=== PATIENT | male | born 1940 | race Caucasian/White ===

== ENCOUNTER 2016-06-27 03:55 | Inpatient (IN) | payer OTHER ==
[~2016-06-27] VITALS: Ht 182.9 cm; Wt 103.4 kg
[~2016-06-27 03:55] MED LIST: AMLODIPINE BESY10 MG PO; ASPIR-LOW81 MG PO; ATORVASTATIN CA40 MG PO; GLUCOPHAGE1000 MG PO; HUMULIN N100 UNIT/2 SC; HYDROCHLOROTHIA25 MG PO; METFORMIN HCL500 MG PO; OMEPRAZOLE40 M1 PO; RANEXA500 MG PO; RANITIDINE HCL300 MG PO; TRANDOLAPRIL2 MG PO
[2016-06-27 04:50] LABS: BASOPHIL COUNT 0.1 K/uL (0-0.1); EOSINOPHIL (%) 1.6 % (0-5); EOSINOPHIL COUNT 0.1 K/uL (0-0.3); HEMATOCRIT 33.8 % (38.0-50.0); IMMATURE GRANULOCYTE (%) 0.3 % (0.0-0.7); INSTRUMENT ABS NEUTROPHIL CT 4.9 K/uL; LYMPHOCYTE COUNT 1.1 K/uL (1.0-2.8); MCH 29.5 PG (29.0-34.0); MCHC 33.7 G/DL (30.0-36.0); MCV 87.3 FL (86-99); MEAN PLAT.VOLUME 10.5 uM^3 (9.0-12.4); MONOCYTE (%) 9.6 % (3-12); MONOCYTE COUNT 0.7 K/uL (0-0.8); NEUTROPHIL (%) 71.5 % (45-76); NEUTROPHIL COUNT 4.9 K/uL (1.8-6.4); PLATELET COUNT 229 K/uL (156-360); RBC DIS.WIDTH-CV 13.3 % (11.8-14.6); RBC DIS.WIDTH-SD 42.2 % (39-53); RED BLOOD COUNT 3.87 M/uL (4.00-5.50); WHITE BLOOD COUNT 6.9 K/uL (4.1-10.2)
[2016-06-27 05:00] LABS: CHLORIDE 109 mEq/L (99-109); POTASSIUM 4.1 mEq/L (3.7-5.4); SODIUM 139 mEq/L (136-147)
[2016-06-27 05:02] LABS: D-DIMER ELISA 1.62 mg/L FEU (< 0.57); GLUCOSE 160 mg/dL (70-99)
[2016-06-27 05:04] LABS: ANION GAP 10 MEQ/L (2-14); TOTAL BILIRUBIN 0.4 mg/dL (0.0-1.0)
[2016-06-27 05:06] LABS: ALKALINE PHOSPHATASE 67 IU/L (3-129); GFR ESTIMATE (CALCULATED) 42 mL/min/
[2016-06-27 05:07] LABS: UREA NITROGEN (BUN) 42 mg/dL (9-23)
[2016-06-27 05:24] LABS: TROP-I INTERPRETATION POSITIVE; TROPONIN-I 1.03 ng/mL (0.0-0.30)
[2016-06-27 05:55] LABS: INTER. NORMALIZED RATIO 1.1; PROTHROMBIN TIME 10.7 (9.2-11.2)
[2016-06-27 06:13] LABS: PTT 28.6 (25-32)
[2016-06-27 07:56] LABS: POINT-OF-CARE METER ID UU14100415
[2016-06-27 12:32] VITALS: BP 138/71
[2016-06-27 12:35] LABS: INTER. NORMALIZED RATIO 1.1; PROTHROMBIN TIME 11.4 (9.2-11.2)
[2016-06-27 12:37] LABS: Estimated Average Glucose 217 mg/dL (70-123); HEMOGLOBIN A1c (GLYCOHEMOGLOB) 9.2 % HGB (Below 5.7)
[2016-06-27 12:45] LABS: POINT-OF-CARE METER ID UU13113781
[2016-06-27 13:19] LABS: TROP-I INTERPRETATION POSITIVE; TROPONIN-I 4.64 ng/mL (0.0-0.30)
[2016-06-27 14:23] LABS: HDL CHOLESTEROL 63 MG/DL (Desirable>=40); LDL CHOLESTEROL 138 mg/dL (Desirable<100); NON-HDL CHOLESTEROL 154 mg/dL (Desirable<160); TOTAL CHOLESTEROL 217 mg/dL (Desirable<200); TRIGLYCERIDES 80 MG/DL (Normal: <150)
[2016-06-27 16:48] LABS: POINT-OF-CARE METER ID UU13113781
[2016-06-27 17:11] VITALS: BP 101/59
[2016-06-27 18:30] LABS: TROP-I INTERPRETATION POSITIVE; TROPONIN-I 8.01 ng/mL (0.0-0.30)
[2016-06-27 20:34] VITALS: BP 107/62
[2016-06-27 23:19] VITALS: BP 105/64
[2016-06-28 00:59] LABS: TROP-I INTERPRETATION POSITIVE; TROPONIN-I 6.74 ng/mL (0.0-0.30)
[2016-06-28 04:21] VITALS: BP 104/65
[2016-06-28 08:04] LABS: TROP-I INTERPRETATION POSITIVE; TROPONIN-I 4.76 ng/mL (0.0-0.30)
[2016-06-28 08:14] LABS: POINT-OF-CARE METER ID UU13113781
[2016-06-28 09:12] LABS: BASOPHIL COUNT 0.1 K/uL (0-0.1); EOSINOPHIL (%) 4.4 % (0-5); EOSINOPHIL COUNT 0.3 K/uL (0-0.3); HEMATOCRIT 34.5 % (38.0-50.0); IMMATURE GRANULOCYTE (%) 0.3 % (0.0-0.7); INSTRUMENT ABS NEUTROPHIL CT 3.8 K/uL; LYMPHOCYTE COUNT 1.8 K/uL (1.0-2.8); MCH 29.6 PG (29.0-34.0); MCV 89.6 FL (86-99); MEAN PLAT.VOLUME 11.3 uM^3 (9.0-12.4); MONOCYTE (%) 9.9 % (3-12); MONOCYTE COUNT 0.7 K/uL (0-0.8); NEUTROPHIL (%) 57.2 % (45-76); NEUTROPHIL COUNT 3.8 K/uL (1.8-6.4); NRBC (%) 0.5 /100 WBC (0-0); PLATELET COUNT 240 K/uL (156-360); RBC DIS.WIDTH-CV 13.7 % (11.8-14.6); RBC DIS.WIDTH-SD 44.9 % (39-53); RED BLOOD COUNT 3.85 M/uL (4.00-5.50); WHITE BLOOD COUNT 6.7 K/uL (4.1-10.2)
[2016-06-28 09:35] LABS: CHLORIDE 111 mEq/L (99-109); POTASSIUM 4.5 mEq/L (3.7-5.4); SODIUM 142 mEq/L (136-147)
[2016-06-28 09:37] LABS: GLUCOSE 126 mg/dL (70-99)
[2016-06-28 09:38] LABS: ANION GAP 10 MEQ/L (2-14)
[2016-06-28 09:41] LABS: GFR ESTIMATE (CALCULATED) 48 mL/min/; UREA NITROGEN (BUN) 36 mg/dL (9-23)
[2016-06-28 09:52] VITALS: BP 123/92
[2016-06-28 11:06] LABS: POINT-OF-CARE METER ID UU13113781
[2016-06-28 11:54] VITALS: BP 113/77
[2016-06-28 15:59] LABS: POINT-OF-CARE METER ID UU14174216
[2016-06-28 16:49] VITALS: BP 116/57
[2016-06-28 19:45] VITALS: BP 107/62
[2016-06-28 20:51] LABS: POINT-OF-CARE METER ID UU14174216
[2016-06-28 23:00] VITALS: BP 106/60
[2016-06-29 03:15] VITALS: BP 111/64
[2016-06-29 04:10] LABS: BASOPHIL COUNT 0.1 K/uL (0-0.1); EOSINOPHIL COUNT 0.3 K/uL (0-0.3); HEMATOCRIT 31.5 % (38.0-50.0); IMMATURE GRANULOCYTE (%) 0.4 % (0.0-0.7); INSTRUMENT ABS NEUTROPHIL CT 4.1 K/uL; LYMPHOCYTE COUNT 2.1 K/uL (1.0-2.8); MCH 29.7 PG (29.0-34.0); MCHC 33.3 G/DL (30.0-36.0); MEAN PLAT.VOLUME 10.8 uM^3 (9.0-12.4); MONOCYTE (%) 10.3 % (3-12); MONOCYTE COUNT 0.8 K/uL (0-0.8); NEUTROPHIL (%) 56.4 % (45-76); NEUTROPHIL COUNT 4.1 K/uL (1.8-6.4); PLATELET COUNT 207 K/uL (156-360); RBC DIS.WIDTH-CV 13.6 % (11.8-14.6); RBC DIS.WIDTH-SD 44.4 % (39-53); RED BLOOD COUNT 3.54 M/uL (4.00-5.50); WHITE BLOOD COUNT 7.3 K/uL (4.1-10.2)
[2016-06-29 04:57] LABS: CHLORIDE 110 mEq/L (99-109)
[2016-06-29 04:58] LABS: SODIUM 140 mEq/L (136-147)
[2016-06-29 04:59] LABS: GLUCOSE 131 mg/dL (70-99)
[2016-06-29 05:01] LABS: ANION GAP 8 MEQ/L (2-14)
[2016-06-29 05:03] LABS: GFR ESTIMATE (CALCULATED) 45 mL/min/
[2016-06-29 05:04] LABS: UREA NITROGEN (BUN) 38 mg/dL (9-23)
[2016-06-29 07:00] VITALS: BP 109/65
[2016-06-29 08:08] LABS: POINT-OF-CARE METER ID UU13113781; POINT-OF-CARE USER ID ENVKC36
[2016-06-29 11:29] VITALS: BP 110/59
[2016-06-29 15:18] VITALS: BP 120/66
[2016-06-29 16:49] LABS: POINT-OF-CARE USER ID ENVKC36
== END 2016-06-29 16:44 | disposition short-term general hospital (02) | DRG 280 ==
LOC: EME → EDBD 03:55 → EME 03:55 → EDOF 05:58 → 4EAST 12:19
PROVIDERS: Emergency Medicine; Hospitalist; Internal Medicine; Internal Medicine Cardiovascular Disease; Physician Assistant Medical
DX: I21.4 Non-ST elevation (NSTEMI) myocardial infarction (principal); I50.31 Acute diastolic (congestive) heart failure; E11.40 Type 2 diabetes mellitus with diabetic neuropathy, unspecified; E11.21 Type 2 diabetes mellitus with diabetic nephropathy; E11.22 Type 2 diabetes mellitus with diabetic chronic kidney disease; E11.65 Type 2 diabetes mellitus with hyperglycemia; I25.10 Atherosclerotic heart disease of native coronary artery without angina pectoris; Z95.5 Presence of coronary angioplasty implant and graft; N18.3 Chronic kidney disease, stage 3 (moderate); E78.5 Hyperlipidemia, unspecified; I35.0 Nonrheumatic aortic (valve) stenosis; Z96.652 Presence of left artificial knee joint; E66.9 Obesity, unspecified; Z68.31 Body mass index [BMI] 31.0-31.9, adult; Z87.891 Personal history of nicotine dependence; H35.30 Unspecified macular degeneration; K21.9 Gastro-esophageal reflux disease without esophagitis; Z89.412 Acquired absence of left great toe; Z79.4 Long term (current) use of insulin
CPT/HCPCS: 71020; 80048; 80053; 80061; 82948; 83036; 83880; 84484; 85025; 85027; 85379; 85610; 85730; 93005; 99281; 99284; G0378; J1815; J1940

== ENCOUNTER 2017-01-20 11:34 | Inpatient (IN) | payer OTHER ==
[~2017-01-20] VITALS: Ht 182.9 cm; Wt 111.7 kg
[~2017-01-20 11:34] MED LIST changes: -ATORVASTATIN CA40 MG PO; +ATORVASTATIN CA80 MG PO; -HUMULIN N100 UNIT/2 SC; +LEVEMIR FL100 UNIT/1 SC
[2017-01-20 12:09] LABS: EOSINOPHIL (%) 0.1 % (0-5); HEMATOCRIT 38.6 % (38.0-50.0); IMMATURE GRANULOCYTE (%) 0.3 % (0.0-0.7); INSTRUMENT ABS NEUTROPHIL CT 7.9 K/uL; LYMPHOCYTE COUNT 0.7 K/uL (1.0-2.8); MCH 30.6 PG (29.0-34.0); MCHC 33.4 G/DL (30.0-36.0); MCV 91.5 FL (86-99); MONOCYTE (%) 6.9 % (3-12); MONOCYTE COUNT 0.7 K/uL (0-0.8); NEUTROPHIL (%) 84.5 % (45-76); NEUTROPHIL COUNT 7.9 K/uL (1.8-6.4); PLATELET COUNT 175 K/uL (156-360); RBC DIS.WIDTH-CV 14.1 % (11.8-14.6); RBC DIS.WIDTH-SD 47.3 % (39-53); RED BLOOD COUNT 4.22 M/uL (4.00-5.50); WHITE BLOOD COUNT 9.4 K/uL (4.1-10.2)
[2017-01-20 12:19] LABS: CHLORIDE 104 mEq/L (99-109); POTASSIUM 4.1 mEq/L (3.7-5.4); SODIUM 138 mEq/L (136-147)
[2017-01-20 12:22] LABS: GLUCOSE 341 mg/dL (70-99)
[2017-01-20 12:23] LABS: ANION GAP 11 MEQ/L (2-14)
[2017-01-20 12:24] LABS: TOTAL BILIRUBIN 1.2 mg/dL (0.0-1.0)
[2017-01-20 12:25] LABS: ALKALINE PHOSPHATASE 95 IU/L (3-129); GFR ESTIMATE (CALCULATED) 45 mL/min/
[2017-01-20 12:26] LABS: UREA NITROGEN (BUN) 30 mg/dL (9-23)
[2017-01-20 14:03] LABS: ADD MIUA? YES; BILIRUBIN NEGATIVE; BLOOD SMALL; COLOR YELLOW ((YELLOW)); GLUCOSE (STRIP) >=500; KETONES NEGATIVE; LEUKOCYTES NEGATIVE; NITRITE NEGATIVE; PROTEIN (STRIP) 100; UROBILINOGEN 0.2 MG/DL (0.2-1.0)
[2017-01-20 14:11] LABS: BACTERIA RARE /HPF; EPITHELIAL CELLS RARE /HPF; MUCUS TRACE /LPF; RED BLOOD CELLS 0-5 /HPF (0-5); UCUL ADDED? NO; WHITE BLOOD CELLS 0-5 /HPF (0-5)
[2017-01-20] MEDS ORDERED: METOPROLOL SUCC25 MG PO (14:42)
[2017-01-20] MEDS ORDERED: ELIQUIS5 MG PO (14:42)
[2017-01-20] MEDS ORDERED: FUROSEMIDE40 MG PO ×2 (14:43→14:44)
[2017-01-20] MEDS ORDERED: CLOPIDOGREL75 MG PO (14:44)
[2017-01-20] MEDS ORDERED: IRON325 M1 PO (14:45)
[2017-01-20] MEDS ORDERED: NITROGLYCERIN0.4 MG SL (14:45)
[2017-01-20] MEDS ORDERED: NOVOLOG PE100 UNITS/ SC (14:45)
[2017-01-20 15:48] LABS: POINT-OF-CARE METER ID UU14100415
[2017-01-20 16:53] LABS: HDL CHOLESTEROL 53 MG/DL (Desirable>=40); LDL CHOLESTEROL 105 mg/dL (Desirable<100); NON-HDL CHOLESTEROL 136 mg/dL (Desirable<160); TOTAL CHOLESTEROL 189 mg/dL (Desirable<200); TRIGLYCERIDES 156 MG/DL (Normal: <150)
[2017-01-20 17:01] LABS: Estimated Average Glucose 186 mg/dL (70-123); HEMOGLOBIN A1c (GLYCOHEMOGLOB) 8.1 % HGB (Below 5.7)
[2017-01-20 17:27] VITALS: BP 168/93
[2017-01-20 18:06] LABS: POINT-OF-CARE METER ID UU14162513
[2017-01-20 19:00] VITALS: BP 160/78
[2017-01-20 23:09] VITALS: BP 103/56
[2017-01-21 04:23] VITALS: BP 121/52
[2017-01-21 06:14] LABS: MCH 30.6 PG (29.0-34.0); MCHC 33.5 G/DL (30.0-36.0); MCV 91.4 FL (86-99); MEAN PLAT.VOLUME 10.8 uM^3 (9.0-12.4); PLATELET COUNT 143 K/uL (156-360); RBC DIS.WIDTH-CV 14.1 % (11.8-14.6); RBC DIS.WIDTH-SD 47.9 % (39-53); RED BLOOD COUNT 3.72 M/uL (4.00-5.50); WHITE BLOOD COUNT 5.3 K/uL (4.1-10.2)
[2017-01-21 07:45] VITALS: BP 128/61
[2017-01-21 07:48] LABS: ANION GAP 9 MEQ/L (2-14); CHLORIDE 105 MEQ/L (99-109); POTASSIUM 3.4 MEQ/L (3.7-5.4); SAMPLE HEMOLYSIS CHECK 0; SAMPLE ICTERIC CHECK 0; SAMPLE LIPEMIA CHECK 0; SODIUM 139 MEQ/L (136-147)
[2017-01-21 07:54] LABS: GFR ESTIMATE (CALCULATED) 57 mL/min/; GLUCOSE 188 mg/dL (70-99); UREA NITROGEN (BUN) 26 mg/dL (9-23)
[2017-01-21 08:03] LABS: POINT-OF-CARE METER ID UU14162513
[2017-01-21 08:16] LABS: POINT-OF-CARE METER ID UU13113700
[2017-01-21 09:52] LABS: METH RESISTANT S AUREUS PCR NEGATIVE (NEGATIVE)
[2017-01-21 09:58] LABS: PROBE CHECK PASS; SPECIMEN PROCESSING CONTROL PASS
[2017-01-21 11:34] VITALS: BP 119/60
[2017-01-21 13:44] LABS: POINT-OF-CARE METER ID UU14162513
[2017-01-21 16:38] VITALS: BP 156/85
[2017-01-21 17:30] LABS: POINT-OF-CARE METER ID UU13113831
[2017-01-21 20:00] VITALS: BP 126/64
[2017-01-21 22:54] LABS: POINT-OF-CARE METER ID UU13113831
[2017-01-22 02:18] VITALS: BP 192/103
[2017-01-22 07:46] VITALS: BP 124/78
[2017-01-22 07:53] LABS: POINT-OF-CARE METER ID UU14174225
[2017-01-22 11:10] VITALS: BP 116/72
[2017-01-22 12:15] LABS: POINT-OF-CARE METER ID UU14174225
[2017-01-22 15:38] VITALS: BP 134/64
[2017-01-22 17:16] LABS: POINT-OF-CARE METER ID UU13113717
[2017-01-22 20:00] VITALS: BP 147/85
[2017-01-22 20:43] LABS: POINT-OF-CARE METER ID UU13113717
[2017-01-23 00:11] VITALS: BP 132/66
[2017-01-23 04:30] VITALS: BP 134/91
[2017-01-23 07:31] VITALS: BP 201/101
[2017-01-23 07:40] VITALS: BP 178/92
[2017-01-23 08:01] LABS: POINT-OF-CARE METER ID UU13113717
[2017-01-23 10:16] LABS: POINT-OF-CARE METER ID UU14174225
[2017-01-23 11:53] LABS: POINT-OF-CARE METER ID UU13113717
[2017-01-23 11:54] VITALS: BP 145/71
[2017-01-23] MEDS ORDERED: K-DUR20 MEQ PO (13:49)
[2017-01-23] MEDS ORDERED: PEPCID40 MG PO (13:50)
[2017-01-23] MEDS ORDERED: ZUPLENZ4 MG PO (13:51)
[2017-01-23] MEDS ORDERED: PAIN & FEVER325 MG PO (13:52)
== END 2017-01-23 13:26 | DRG 66 ==
LOC: EME 11:34 → EDOF 15:13 → 5WEST 15:13 → EDOF 15:13 → ENRESERV 15:18 → 5WEST 17:00 → 5SOUTH 01-21 16:08 → 5WEST 01-21 16:08 → ENRESERV 01-21 23:48 → 5SOUTH 01-22 02:06
PROVIDERS: Emergency Medicine; Hospitalist
DX: I63.9 Cerebral infarction, unspecified (principal); I11.0 Hypertensive heart disease with heart failure; I50.9 Heart failure, unspecified; E11.42 Type 2 diabetes mellitus with diabetic polyneuropathy; I25.10 Atherosclerotic heart disease of native coronary artery without angina pectoris; I48.91 Unspecified atrial fibrillation; M75.101 Unspecified rotator cuff tear or rupture of right shoulder, not specified as traumatic; K21.9 Gastro-esophageal reflux disease without esophagitis; R29.6 Repeated falls; Z86.73 Personal history of transient ischemic attack (TIA), and cerebral infarction without residual deficits; Z95.2 Presence of prosthetic heart valve; I25.2 Old myocardial infarction; E66.9 Obesity, unspecified; Z68.33 Body mass index [BMI] 33.0-33.9, adult; Z96.652 Presence of left artificial knee joint; Z79.01 Long term (current) use of anticoagulants; Z79.4 Long term (current) use of insulin
CPT/HCPCS: 70450; 70551; 71010; 80048; 80053; 80061; 80306 90; 81003; 82948; 83036; 85025; 85027; 87641; 92523 GN; 92610 GN; 93005; 93880; 99281; 99285; G0378; G8978 GP CM; G8979 CJ; G8987 GO CM; G8988 GO CK; G9168 GN CJ; G9169 GN CJ; G9170 GN CJ; J1815; J7030

== ENCOUNTER 2017-01-23 10:07 | Inpatient (IN) | payer OTHER ==
[~2017-01-23] VITALS: Ht 182.9 cm; Wt 112.4 kg
[~2017-01-23 10:07] MED LIST changes: +CLOPIDOGREL75 MG PO; +ELIQUIS5 MG PO; +FUROSEMIDE40 MG PO; +IRON325 M1 PO; +METOPROLOL SUCC25 MG PO; +NITROGLYCERIN0.4 MG SL; +NOVOLOG PE100 UNITS/ SC
[2017-01-23] MEDS ORDERED: K-DUR20 MEQ PO (13:49)
[2017-01-23] MEDS ORDERED: PEPCID40 MG PO (13:50)
[2017-01-23 13:51] VITALS: BP 135/88
[2017-01-23] MEDS ORDERED: ZUPLENZ4 MG PO (13:51)
[2017-01-23] MEDS ORDERED: PAIN & FEVER325 MG PO (13:52)
[2017-01-23 15:30] VITALS: BP 164/84
[2017-01-23 16:22] LABS: POINT-OF-CARE METER ID UU14174215; POINT-OF-CARE USER ID 609231305
[2017-01-23 20:48] LABS: POINT-OF-CARE METER ID UU14174215
[2017-01-23 23:25] VITALS: BP 158/78
[2017-01-24 05:12] VITALS: BP 140/97
[2017-01-24 07:24] LABS: MCHC 33.1 G/DL (30.0-36.0); MCV 90.7 FL (86-99); MEAN PLAT.VOLUME 10.6 uM^3 (9.0-12.4); RBC DIS.WIDTH-CV 13.7 % (11.8-14.6); RBC DIS.WIDTH-SD 45.4 % (39-53); WHITE BLOOD COUNT 5.7 K/uL (4.1-10.2)
[2017-01-24 07:29] LABS: PLATELET COUNT 191 K/uL (156-360)
[2017-01-24 07:41] LABS: POINT-OF-CARE METER ID UU14174215
[2017-01-24 08:00] LABS: ALKALINE PHOSPHATASE 82 IU/L (3-129); ANION GAP 11 MEQ/L (2-14); CHLORIDE 107 MEQ/L (99-109); GFR ESTIMATE (CALCULATED) > 59 mL/min/ (58.99-99999); POTASSIUM 3.9 MEQ/L (3.7-5.4); SAMPLE HEMOLYSIS CHECK 0; SAMPLE ICTERIC CHECK 0; SAMPLE LIPEMIA CHECK 0; SODIUM 144 MEQ/L (136-147); TOTAL BILIRUBIN 0.8 MG/DL (0.0-1.0); UREA NITROGEN (BUN) 32 mg/dL (9-23)
[2017-01-24 08:01] LABS: GLUCOSE 70 mg/dL (70-99)
[2017-01-24 11:55] LABS: POINT-OF-CARE METER ID UU13113720; POINT-OF-CARE USER ID AHSSSJB31
[2017-01-24 16:10] VITALS: BP 114/59
[2017-01-24 17:13] LABS: POINT-OF-CARE METER ID UU14174215
[2017-01-24 21:35] LABS: POINT-OF-CARE METER ID UU13113720
[2017-01-25 06:22] VITALS: BP 132/82
[2017-01-25 08:09] LABS: POINT-OF-CARE METER ID UU13113720; POINT-OF-CARE USER ID AHSSSJB31
[2017-01-25 11:45] LABS: POINT-OF-CARE METER ID UU13113720; POINT-OF-CARE USER ID AHSSSJB31
[2017-01-25 16:03] VITALS: BP 146/87
[2017-01-25 16:35] LABS: POINT-OF-CARE METER ID UU13113720
[2017-01-25 21:04] LABS: POINT-OF-CARE METER ID UU14174215
[2017-01-26 05:07] VITALS: BP 136/79
[2017-01-26 06:43] LABS: POINT-OF-CARE METER ID UU14174215; POINT-OF-CARE USER ID ENVGAF
[2017-01-26 07:19] LABS: POINT-OF-CARE METER ID UU14174215; POINT-OF-CARE USER ID ENVGAF
[2017-01-26 11:44] LABS: POINT-OF-CARE METER ID UU14174215; POINT-OF-CARE USER ID ENVGAF
[2017-01-26 15:24] VITALS: BP 135/67
[2017-01-26 16:58] LABS: POINT-OF-CARE METER ID UU13113720
[2017-01-26 21:51] LABS: POINT-OF-CARE METER ID UU13113720
[2017-01-27 06:04] VITALS: BP 127/84
[2017-01-27 07:02] LABS: POINT-OF-CARE METER ID UU14174215; POINT-OF-CARE USER ID ENVGAF
[2017-01-27 11:38] LABS: POINT-OF-CARE METER ID UU14174215; POINT-OF-CARE USER ID ENVGAF
[2017-01-27 16:31] VITALS: BP 151/86
[2017-01-27 16:31] LABS: POINT-OF-CARE METER ID UU13113720
[2017-01-27 21:12] LABS: POINT-OF-CARE METER ID UU13113720
[2017-01-28 04:36] VITALS: BP 135/62
[2017-01-28 07:55] LABS: POINT-OF-CARE METER ID UU13113720
[2017-01-28 11:19] LABS: POINT-OF-CARE METER ID UU14174215
[2017-01-28 16:00] VITALS: BP 121/73
[2017-01-28 16:22] LABS: POINT-OF-CARE METER ID UU14174215
[2017-01-28 20:49] LABS: POINT-OF-CARE METER ID UU14174215
[2017-01-29 05:18] VITALS: BP 135/82
[2017-01-29 07:20] LABS: POINT-OF-CARE METER ID UU13113720
[2017-01-29 11:25] LABS: POINT-OF-CARE METER ID UU13113720
[2017-01-29 15:54] VITALS: BP 136/63
[2017-01-29 16:34] LABS: POINT-OF-CARE METER ID UU14174215
[2017-01-29 20:54] VITALS: BP 121/71
[2017-01-29 21:00] LABS: POINT-OF-CARE METER ID UU13113720
[2017-01-30 05:10] VITALS: BP 103/55
[2017-01-30 15:04] VITALS: BP 126/80
[2017-01-30 16:23] LABS: POINT-OF-CARE METER ID UU13113720
[2017-01-30 21:15] VITALS: BP 127/71
[2017-01-30 21:25] LABS: POINT-OF-CARE METER ID UU13113720
[2017-01-31 06:05] VITALS: BP 131/74
[2017-01-31 11:24] LABS: POINT-OF-CARE METER ID UU14174215
[2017-01-31 15:11] VITALS: BP 116/65
[2017-01-31 16:44] LABS: POINT-OF-CARE METER ID UU14174215
[2017-01-31 21:36] LABS: POINT-OF-CARE METER ID UU13113720
[2017-02-01 06:03] VITALS: BP 136/68
[2017-02-01 07:36] LABS: POINT-OF-CARE METER ID UU13113720; POINT-OF-CARE USER ID AHSSSJB31
[2017-02-01 10:29] LABS: POINT-OF-CARE METER ID UU13113720
[2017-02-01 10:29] LABS: POINT-OF-CARE METER ID UU13113720; POINT-OF-CARE USER ID ENVGAF
[2017-02-01 11:43] LABS: POINT-OF-CARE METER ID UU14174215; POINT-OF-CARE USER ID AHSSSJB31
[2017-02-01 15:00] VITALS: BP 136/78
[2017-02-01 16:35] LABS: POINT-OF-CARE METER ID UU13113720
[2017-02-01 21:38] LABS: POINT-OF-CARE METER ID UU13113720
[2017-02-02 04:26] VITALS: BP 129/79
[2017-02-02 07:18] LABS: POINT-OF-CARE METER ID UU13113720; POINT-OF-CARE USER ID AHSSSJB31
[2017-02-02 11:58] LABS: POINT-OF-CARE METER ID UU13113720; POINT-OF-CARE USER ID AHSSSJB31
[2017-02-02 16:26] VITALS: BP 132/36
[2017-02-02 17:07] LABS: POINT-OF-CARE METER ID UU14174215
[2017-02-02 21:03] LABS: POINT-OF-CARE METER ID UU13113720
[2017-02-03 05:38] VITALS: BP 137/80
[2017-02-03 06:54] LABS: POINT-OF-CARE METER ID UU13113720
[2017-02-03 08:12] LABS: POINT-OF-CARE METER ID UU13113720
[2017-02-03 11:40] LABS: POINT-OF-CARE METER ID UU13113720; POINT-OF-CARE USER ID AHSSSJB31
[2017-02-03 15:09] VITALS: BP 135/92
[2017-02-03 16:42] LABS: POINT-OF-CARE METER ID UU13113720
[2017-02-03] MEDS ORDERED: FUROSEMIDE40 MG PO (17:12)
[2017-02-03] MEDS ORDERED: ATORVASTATIN CA80 MG PO (17:12)
[2017-02-03] MEDS ORDERED: LEVEMIR100 UNIT/2 SC ×2 (17:12)
[2017-02-03] MEDS ORDERED: PEPCID40 MG PO (17:12)
[2017-02-03] MEDS ORDERED: METOPROLOL SUCC25 MG PO (17:12)
[2017-02-03] MEDS ORDERED: ELIQUIS5 MG PO (17:12)
[2017-02-03] MEDS ORDERED: IRON325 M1 PO (17:12)
[2017-02-03] MEDS ORDERED: RANEXA500 MG PO (17:12)
[2017-02-03] MEDS ORDERED: CLOPIDOGREL75 MG PO (17:12)
[2017-02-03 21:19] LABS: POINT-OF-CARE METER ID UU13113720
[2017-02-04 05:33] VITALS: BP 153/91
[2017-02-04 06:54] LABS: POINT-OF-CARE METER ID UU13113720
[2017-02-04 11:07] LABS: POINT-OF-CARE METER ID UU13113720
== END 2017-02-04 14:43 | disposition home health service (06) | DRG 57 ==
LOC: 3WEST 10:07 → ENPENDDIS 02-02 → 3WEST 02-04 14:43
PROVIDERS: Physical Medicine & Rehabilitation Pain Medicine
PROC: F07M0ZZ Range of Motion and Joint Mobility Treatment of Musculoskeletal System - Whole Body (ICD-10-PCS; principal; 2017-01-23)
DX: I69.398 Other sequelae of cerebral infarction (principal); R53.1 Weakness; I10 Essential (primary) hypertension; R41.89 Other symptoms and signs involving cognitive functions and awareness; Z96.652 Presence of left artificial knee joint; I25.10 Atherosclerotic heart disease of native coronary artery without angina pectoris; I48.91 Unspecified atrial fibrillation; E11.42 Type 2 diabetes mellitus with diabetic polyneuropathy; Z95.2 Presence of prosthetic heart valve; E87.6 Hypokalemia; D69.6 Thrombocytopenia, unspecified; D64.9 Anemia, unspecified; E83.51 Hypocalcemia; Z79.01 Long term (current) use of anticoagulants; G89.29 Other chronic pain; R19.7 Diarrhea, unspecified; R10.9 Unspecified abdominal pain
CPT/HCPCS: 80053; 82948; 85027; 92507 GN; 92523 GN; 93306; 97110 GO; 97112 GO; 97530 GP; 97532 GN

== ENCOUNTER 2017-08-27 07:37 | Emergency (ER) | payer OTHER ==
[~2017-08-27] VITALS: Ht 182.9 cm; Wt 114.4 kg
[~2017-08-27 07:37] MED LIST changes: +K-DUR20 MEQ PO; +LEVEMIR100 UNIT/2 SC; +PAIN & FEVER325 MG PO; +PEPCID40 MG PO; +ZUPLENZ4 MG PO
[2017-08-27 08:12] LABS: BASOPHIL (%) 1.3 % (0-1); EOSINOPHIL (%) 3.9 % (0-5); EOSINOPHIL COUNT 0.1 K/uL (0-0.3); HEMATOCRIT 38.5 % (38.0-50.0); HEMOGLOBIN 13.3 G/DL (12.5-16.6); IMMATURE GRANULOCYTE (%) 0.3 % (0.0-0.7); LYMPHOCYTE (%) 30.5 % (15-42); LYMPHOCYTE COUNT 0.9 K/uL (1.0-2.8); MCH 32.7 PG (29.0-34.0); MCHC 34.5 G/DL (30.0-36.0); MCV 94.6 FL (86-99); MONOCYTE (%) 15.4 % (3-12); MONOCYTE COUNT 0.5 K/uL (0-0.8); NEUTROPHIL (%) 48.6 % (45-76); NEUTROPHIL COUNT 1.5 K/uL (1.8-6.4); PLATELET COUNT 185 K/uL (156-360); RBC DIS.WIDTH-CV 12.6 % (11.8-14.6); RBC DIS.WIDTH-SD 43.7 % (39-53); RED BLOOD COUNT 4.07 M/uL (4.00-5.50); WHITE BLOOD COUNT 3.1 K/uL (4.1-10.2)
[2017-08-27 08:17] LABS: INTER. NORMALIZED RATIO 1.4
[2017-08-27 08:20] LABS: PTT 36.2 SEC (25-37)
[2017-08-27] MEDS ORDERED: LISINOPRIL2.5 MG PO (08:22)
[2017-08-27 08:23] LABS: AMYLASE 42 IU/L (1-118); CHLORIDE 105 mEq/L (99-109); POTASSIUM 4.2 mEq/L (3.7-5.4); SODIUM 142 mEq/L (136-147)
[2017-08-27 08:28] LABS: CREATININE 1.5 mg/dL (0.6-1.3); GFR ESTIMATE (CALCULATED) 48 mL/min/ (58.99-99999); SERUM ETHYL ALCOHOL < 10 mg/dL
[2017-08-27 08:29] LABS: UREA NITROGEN (BUN) 33 mg/dL (9-23)
[2017-08-27 08:30] LABS: GLUCOSE 230 mg/dL (70-99)
[2017-08-27 08:31] LABS: LIPASE 6 U/L (1.0-51.0)
[2017-08-27 08:32] LABS: TROP-I INTERPRETATION NEGATIVE; TROPONIN-I 0.02 ng/mL (0.0-0.30)
[2017-08-27 09:35] LABS: APPEARANCE CLEAR ((CLEAR)); BILIRUBIN NEGATIVE; BLOOD NEGATIVE; COLOR YELLOW ((YELLOW)); GLUCOSE (STRIP) >=500; KETONES NEGATIVE; LEUKOCYTES NEGATIVE; NITRITE NEGATIVE; PROTEIN (STRIP) 100; SPECIFIC GRAVITY 1.017 (1.000-1.030); UROBILINOGEN 0.2 MG/DL (0.2-1.0)
[2017-08-27 09:40] LABS: BACTERIA NONE SEEN /HPF; EPITHELIAL CELLS RARE /HPF; HYALINE CASTS 0-5 /LPF; MUCUS NONE SEEN /LPF; RED BLOOD CELLS 0-5 /HPF (0-5); UCUL ADDED? NO; WHITE BLOOD CELLS 0-5 /HPF (0-5)
[2017-08-27 09:49] LABS: AMPHETAMINE NEGATIVE (500 ng/mL); BARBITURATES NEGATIVE (200 ng/mL); BENZODIAZEPINES NEGATIVE (150 ng/mL); BUPRENORPHINE NEGATIVE (10 ng/mL); COCAINE NEGATIVE (150 ng/mL); METHADONE NEGATIVE (200 ng/mL); METHAMPHETAMINE NEGATIVE (500 ng/mL); OPIATES (MORPHINE) NEGATIVE (100 ng/mL); OXYCODONE NEGATIVE (100 ng/mL); PHENCYCLIDINE NEGATIVE (25 ng/mL); PROPOXYPHENE NEGATIVE (300 ng/mL); THC CANNABINOIDS NEGATIVE (50 ng/mL); TRICYCLIC ANTIDEPRESSANTS NEGATIVE (300 ng/mL)
[2017-08-27 13:48] VITALS: BP 150/81
== END 2017-08-27 14:19 | disposition home or self-care (01) ==
LOC: EME 07:37
PROVIDERS: Emergency Medicine
DX: R27.0 Ataxia, unspecified (principal); K11.8 Other diseases of salivary glands; I48.91 Unspecified atrial fibrillation; I11.0 Hypertensive heart disease with heart failure; I50.9 Heart failure, unspecified; E11.9 Type 2 diabetes mellitus without complications; Z79.4 Long term (current) use of insulin; Z86.73 Personal history of transient ischemic attack (TIA), and cerebral infarction without residual deficits; E78.5 Hyperlipidemia, unspecified; Z79.01 Long term (current) use of anticoagulants; K21.9 Gastro-esophageal reflux disease without esophagitis; Z95.2 Presence of prosthetic heart valve; Z96.652 Presence of left artificial knee joint
CPT/HCPCS: 70450; 70551; 71045; 80048; 81003; 82150; 82948; 83690; 84484; 85025; 85610; 85730; 86850; 86900; 86901; 93005; 99281; 99285; G0480; G8978 GP CI; G8979 GP CI; G8980 GP CI; G8987 GO CI; G8988 CI; G8989 GO CI